=== PATIENT | female | born 2005 | race Caucasian/White ===

== ENCOUNTER 2023-01-16 08:14 | Emergency (ER) | payer OTHER, SELFPAY ==
[2023-01-16 08:18] VITALS: BP 138/90; PULSE 91; RESP 18; TEMP 36.4; O2SAT 100; BMI 18.5
--- NOTE | 2023-01-16 08:29 | ED_ITS ---
HPI - General Adult General Chief complaint: Skin/Abscess/Foreign Body Stated complaint: LUMPS ON THE NECK Time Seen by Provider: 01/16/23 08:19 Source: patient Mode of arrival: walk-in Limitations: no limitations History of Present Illness HPI narrative: patient presents with prominent lymph nodes in the upper anterior neck that have been present for about a month. She denies any other symptoms at this time - no fever or chills, no sore throat, nasal congestion, ear pain or cough and no vomiting. She told me that they are not tender or painful On questioning I learned that she had strep last month and the lymph nodes were very prominent and tender. 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 But a week after that they were at the size they are now and no longer tender. She does not have a PCP as Dr Lenz retired Related Data Home Medications Medication Instructions Recorded Confirmed No Known Home Medications 01/16/23 01/16/23 Allergies Allergy/AdvReac Type Severity Reaction Status Date / Time pcn AdvReac Intermediate Uncoded 01/16/23 08:18 PFSH PFS Social History Smoking status: Never smoker Exam Narrative Exam Narrative: Nurses notes and vital signs reviewed and patient is not hypoxic. afebrile General: Well-appearing and in no apparent distress. Skin: Warm, dry, no pallor noted. No rash. Head: Normocephalic, atraumatic. Neck: Supple, non-tender. Mild bilateral upper anterior cervical lymphadenopathy Eye: Pupils are equal, round and EOMI. No scleral icterus. Ears, Nose, Mouth, and Throat: TM are clear, no nasal mucosal hypertrophy. Oral mucosa is moist, no posterior oropharynx erythema, uvula is mid-line Cardiovascular: Regular Rate and Rhythm without murmur, gallop or rub. Respiratory: No accessory muscle use or respiratory distress. Lungs are clear to auscultation, no wheezing, rales or rhonchi Musculoskeletal: normal ROM, no calf or popliteal tenderness, no lower extremity edema/swelling Neurological: A&O x4. No cranial nerve dysfunction observed. No truncal a taxia. Moves all extremities. Sensation intact. Psychiatric: Cooperative and interactive. Normal mood and affect. Constitutional Vital Signs, click to edit/add: Last Vital Signs Temp 97.6 F 01/16/23 08:18 Pulse 91 H 10/07/23 08:18 Resp 18 01/16/23 08:18 BP 138/90 01/16/23 08:18 Pulse Ox 100 01/16/23 08:18 O2 Del Method Room Air 01/16/23 08:18 Course Vital Signs Vital signs: Vital Signs Temperature 97.6 F 01/16/23 08:18 Pulse Rate 91 H 01/16/23 08:18 Respiratory Rate 18 01/16/23 08:18 Blood Pressure 138/90 01/16/23 08:18 Pulse Oximetry 100 01/16/23 08:18 Oxygen Delivery Method Room Air 01/16/23 08:18 Temperature 97.6 F 01/16/23 08:18 Pulse Rate 91 H 01/16/23 08:18 Respiratory Rate 18 01/16/23 08:18 Blood Pressure 138/90 01/16/23 08:18 Pulse Oximetry 100 01/16/23 08:18 Oxygen Delivery Method Room Air 01/16/23 08:18 Medical Decision Making MDM Narrative Medical decision making narrative: The patient has bilateral cervical lymphadenopathy following recent strep infection. No other symptoms at this time. Patient and I discussed her diagnosis and she was reassured that this is not an emergent condition and that the swelling should resolve on its own. However, she is to see a primary care provider if the lymphadenopathy persists - she was given referral information for local PCPs taking new patients. Discharge Plan Discharge Chief Complaint: Skin/Abscess/Foreign Body Clinical Impression: Lymphadenopathy, anterior cervical Patient Disposition: Home, Self-Care Time of Disposition Decision: 08:29 Prescriptions / Home Meds: No Action No Known Home Medications Instructions: Lymphadenopathy (ED) Stand Alone Forms: Portal Instructions
== END 2023-01-16 08:34 | disposition home or self-care (01) ==
PROVIDERS: Emergency Provider Emergency Medicine
DX: R59.0 Localized enlarged lymph nodes (principal)
CPT/HCPCS: 99281